=== PATIENT | male | born 1980 | race African-American/Black ===

== ENCOUNTER 2017-10-20 11:05 | Emergency (ER) | payer SELFPAY ==
[~2017-10-20] VITALS: Ht 172.7 cm; Wt 81.6 kg
--- NOTE | 2017-10-20 11:43 | Emergency Room Report ---
History of Present Illness General Chief Complaint: Earache Source: Patient Present Illness HPI URI sy for 3 days. 2 days of pain in his R ear with decreased hearing. Not note drainage or event of possible trauma. No fevers. Pain 10/10, constant, ear, some radiation behind ear. No cough. No NVD, dysuria, joint pain, sore throat. States slightly more than week ago, had increased straining of stool and passed small amount of blood. Allergies: Coded Allergies: No Known Allergies (Unverified , 10/20/17) Patient History Past Medical History: see triage record Social History: Denies: smoking Social History Narrative works at [employer] Reviewed Nursing Documentation: PMH: Agreed, PSxH: Agreed Nursing Documentation-PMH Past Medical History: No Stated History Review of Systems All Other Systems: negative except mentioned in HPI Physical Exam Vital Signs Date Time Temp Pulse Resp B/P (MAP) Pulse Ox O2 Delivery O2 Flow Rate FiO2 10/20/17 11:10 97.6 90 18 145/99 98 Room Air 97.5 Sp02 EP Interpretation: reviewed, normal General Appearance: well appearing, no apparent distress, GCS 15 Head: normocephalic, atraumatic ENT: normal pharynx, other - TM R with perforation, some mucoid d/c, no pinna tenderness. L normal - Reported decreased hearing R Neck: full range of motion, supple Respiratory: no respiratory distress, speaking full sentences Cardiovascular #1: regular rate, rhythm Cardiovascular #2: 2+ radial (R) Gastrointestinal: normal inspection Musculoskeletal: gait/station normal, normal range of motion, no calf tenderness Neurologic: alert, oriented x3, normal gait, grossly normal Psychiatric: mood/affect normal Skin: no rash Medical Decision Making Diagnostic Impression: Primary Impression: Otitis media Qualified Codes: H66.011 - Acute suppurative otitis media with spontaneous rupture of ear drum, right ear Additional Impression: Rectal bleed ER Course Patient with exam c/w OM with perforation. Antibiotics and analgesics indicated and begun. No lab studies indicated. Also by history, probable hemorrhoid with episode of rectal bleed, resolved. Labs not indicated at this time. Concern as treating with opiate analgesia ( discussed with patient). Will need f/u with ENT. Patient stable for outpatient observation and treatment. Last Vital Signs Date Time Temp Pulse Resp B/P (MAP) Pulse Ox O2 Delivery O2 Flow Rate FiO2 10/20/17 12:20 97.6 71 18 145/99 98 Room Air 207.7 Status: improved Disposition: HOME, SELF-CARE Condition: Improved Scripts Lactulose (LACTULOSE*) 20 Gm/30 Ml Solution 30 ML ORAL BID Y for constipation, #240 ML 0 Refills Prov: Radhames Mccord M.D. 10/20/17 Chlorpheniramine Maleate (CHLOR-TRIMETON) 4 Mg Tablet 4 MG PO Q6HR Y for congestion, #10 TAB Prov: Radhames Mccord M.D. 10/20/17 Ibuprofen* (MOTRIN*) 600 Mg Tablet 600 MG ORAL Q6H Y for For Pain, #20 TAB Prov: Radhames Mccord M.D. 10/20/17 Tramadol Hcl* (ULTRAM*) 50 Mg Tablet 50 MG ORAL Q6H Y for For Pain, #12 TAB 0 Refills Prov: Radhames Mccord M.D. 10/20/17 Ciprofloxacin Hcl/Dexameth (CIPRODEX OTIC SUSPENSION) 7.5 Ml Drops.susp 4 DROP RIGHT EAR TWICE A DAY for 7 Days, ML Prov: Radhames Mccord M.D. 10/20/17 Ciprofloxacin Hcl* (CIPROFLOXACIN HCL*) 500 Mg Tablet 500 MG ORAL Q12H, #14 TAB 0 Refills Prov: Radhames Mccord M.D. 10/20/17 Radhames Mccord M.D. Oct 20, 2017 11:43
[2017-10-20] MEDS ORDERED: oxyCODONE HCL/Acetaminophen 5/325mg ORAL ONE (11:45)
[2017-10-20] MEDS ORDERED: Ciprofloxacin 500mg tab ORAL ONE (11:45)
[2017-10-20] MEDS ORDERED: CHLOR-TRIMETON4 MG PO (11:48)
[2017-10-20] MEDS ORDERED: CIPRODEX OTIC7.5 M1 RIGHT EAR (11:48)
[2017-10-20] MEDS ORDERED: TRAMADOL HCL50 MG ORAL (11:48)
[2017-10-20] MEDS ORDERED: IBUPROFEN600 MG ORAL (11:48)
[2017-10-20] MEDS ORDERED: LACTULOSE20 GM/301 ORAL (11:48)
[2017-10-20] MEDS ORDERED: CIPROFLOXACIN500 M2 ORAL (11:48)
[2017-10-20 12:19] VITALS: BP 148/99
[2017-10-20 12:20] VITALS: BP 145/99
== END 2017-10-20 12:22 | disposition home or self-care (01) ==
LOC: EMR 11:50
DX: H66.91 Otitis media, unspecified, right ear (principal); H72.91 Unspecified perforation of tympanic membrane, right ear; K62.5 Hemorrhage of anus and rectum
CPT/HCPCS: 99283